=== PATIENT | male | born 1970 | race Caucasian/White ===

== ENCOUNTER 2017-05-14 10:17 | Inpatient (IN) | payer BC, SELFPAY ==
--- NOTE | 2017-05-14 10:33 | US_ITS ---
HISTORY: ITS.REASON: RUQ pain ORDERING PHYSICIAN: Shantanu Fleming MD PATIENT AGE: 46 years COMPARISON: None FINDINGS: PANCREAS: Pancreas not well demonstrated due to overlying bowel gas. CT may be of further value of the pancreas if clinically warranted. LIVER: No focal liver lesions demonstrated. Homogeneous echogenicity. No intrahepatic biliary ductal dilatation evident RIGHT KIDNEY: Unremarkable. Normal size and echogenicity. No hydronephrosis GALLBLADDER: No gallstones, gallbladder wall thickening, pericholecystic fluid, or biliary dilatation. IMPRESSION: Negative gallbladder/right upper quadrant ultrasound
--- NOTE | 2017-05-14 10:39 | XR_ITS ---
XR chest 2V HISTORY: ITS.REASON: tachycardia ORDERING PHYSICIAN: Shantanu Fleming MD PATIENT AGE: 46 years COMPARISON: None available FINDINGS: The cardiomediastinal silhouette and pulmonary vascularity are within normal limits. The lungs are clear without infiltrates, suspicious nodules, or pleural effusions. No acute bony abnormalities. IMPRESSION: Negative chest, no acute finding
[2017-05-14 11:05] VITALS: BP 184/95; PULSE 100; RESP 20; TEMP 36.9; O2SAT 100; BMI 34.8
[2017-05-14 11:10] LABS: Basophils % 0.3 % (0.1-2.0); Eosinophils % 0.2 % (0.1-12.0); Lymphocytes # 1.3 K/mm3 (0.7-4.5); Lymphocytes % 10.1 K/mm3 (10-50); Mean Corpuscular HGB Conc 31.5 g/dL (31.8-35.4); Mean Platelet Volume 7.6 fl (7.4-10.4); Monocytes # 0.7 K/mm3 (0.1-1.0); Monocytes % 5.2 % (1.7-9.3); Neutrophils # 10.9 K/mm3 (1.8-7.8); Neutrophils % 84.2 % (37.0-80.0); Platelet Count 356 K/mm3 (142-424); Red Blood Count 6.33 M/mm3 (4.60-6.20); Red Cell Distribution Width 13.3 % (11.5-17.5)
[2017-05-14 11:19] LABS: Hematocrit 58.7 % (42.0-52.0); Hemoglobin 18.4 g/dL (14.1-18.0)
[2017-05-14 11:25] LABS: Alanine Aminotransferase 29 U/L (12-78); Albumin Level 4.6 gm/dL (3.4-5.0); Albumin/Globulin Ratio 1.1 (1.1-1.8); Alkaline Phosphatase 145 U/L (46-116); Aspartate Amino Transferase 19 U/L (15-37); Bilirubin,Total 0.6 mg/dL (0.2-1.0); Blood Urea Nitrogen 22 mg/dL (7-18); Calcium 9.3 mg/dL (8.5-10.1); Chloride 86 mmol/L (98-107); Creatinine Clearance Estimated 96 mL/min (0-300); Creatinine,Serum 1.57 mg/dL (0.70-1.30); Estimated Glomerular Filt Rate 48 ml/min (>60); GFR (African American) 58 ML/MIN (>60); Globulin 4.3 gm/dl (1.3-3.2); Glucose 259 mg/dL (74-106); Potassium 5.5 mmoL/L (3.5-5.1); Sodium 119 mmol/L (136-145); Total Protein,Serum 8.9 gm/dL (6.4-8.2)
[2017-05-14 11:30] LABS: Anion Gap 31.5 mEq/L (5-15)
[2017-05-14 11:34] LABS: D-Dimer 306 (0-400)
[2017-05-14 11:36] LABS: CKMB Relative Index 2.8 U/L (0-4.0); Creatine Kinase 146 U/L (39-308); Creatine Kinase MB 4.1 mg/ml (0.0-3.6); Troponin I < 0.02 ng/ml (0.00-0.06)
[2017-05-14 11:37] VITALS: PULSE 100; RESP 20; O2SAT 100
[2017-05-14 11:38] LABS: Carbon Dioxide 7 mmol/L (21.0-32.0)
[2017-05-14 12:18] LABS: POC Glucose,Bedside 249 mg/dL
--- NOTE | 2017-05-14 14:20 | PC.NURSE ---
DR GAN NOTIFIED OF CO2 OF 7. STAT SERUM ACETONE AND ABG ORDERED ALONG WITH 2L LR IV BOLUS AND 4MG ZOFRAN Q6HRS. READ BACK AND VERIFIED.
[2017-05-14 14:24] LABS: ABG Base Excess -25.6 mmol/L (-2.4-2.3); ABG HCO3 4.2 mmhg (22.0-26.0); ABG Oxygen Saturation 98 % (90-100); ABG PO2 139.2 mmhg (80-100); ABG TCO2 4.6 mmhg (23-27)
[2017-05-14 14:26] LABS: Oxygen ROOM AIR %; Source Left Radial
[2017-05-14 14:27] LABS: ABG PCO2 14.2 mmhg (35.0-45.0); ABG PH 7.09 mmol/L (7.35-7.45)
[2017-05-14 15:02] LABS: Acetone, Serum (Rapid) Small (None Detect)
[2017-05-14 15:15] LABS: Microscopic, Urine URINE MICROSCOPIC (MICROSCOPIC)
[2017-05-14 16:31] VITALS: BP 148/76; PULSE 107; RESP 20; TEMP 36.7; O2SAT 100
--- NOTE | 2017-05-14 16:32 | PC.NURSE ---
PT STATED THAT HE MAY OR MAY NOT PUT KAMALA HOSE ON LATER. STATED WHEN HE WOKE UP THAT SHE WOULD ASK HIM ABOUT THE NON-SKID SOCKS. RN WAS IN ROOM AT THIS TIME.
[2017-05-14 16:35] LABS: POC Glucose,Bedside 250 mg/dL
[2017-05-14 16:49] LABS: Appearance,Urine CLEAR (Clear); Blood, Urine MODERATE (Negative); Color,Urine YELLOW (Yellow); Glucose,Urine (UA) 500 (Negative); Ketones,Urine >=80 (Negative); Leukocyte Esterase,Urine Negative (Negative); Nitrate,Urine Negative (Negative); PH,Urine 5.5 (5.0-8.5); Protein,Urine 100 (Negative); Specific Gravity, Urine >= 1.030 (1.005-1.030); Urobilinogen,Urine 0.2 EU/dl (0.2)
[2017-05-14 16:52] LABS: Bilirubin,Urine 1+ (Negative)
[2017-05-14 16:53] LABS: Bacteria,Urine 1+ /lpf; WBC,Urine Occasional #/hpf (0-3)
[2017-05-14 17:28] LABS: Anion Gap 27.6 mEq/L (5-15); Blood Urea Nitrogen 22 mg/dL (7-18); Chloride 92 mmol/L (98-107); Creatinine Clearance Estimated 107 mL/min (0-300); Creatinine,Serum 1.41 mg/dL (0.70-1.30); Estimated Glomerular Filt Rate 55 ml/min (>60); GFR (African American) 66 ML/MIN (>60); Glucose 247 mg/dL (74-106); Potassium 5.6 mmoL/L (3.5-5.1); Sodium 122 mmol/L (136-145)
[2017-05-14 17:30] LABS: Carbon Dioxide 8 mmol/L (21.0-32.0)
--- NOTE | 2017-05-14 18:49 | PC.NURSE ---
Pt A&O x3. Lungs are clear, bowel sounds normal. RUQ is tender to palpation. Pt reports being very nauseous but states he hasn't vomited since coming to the floor. Treated w/zofran and phenergan per mar with relief noted. is at bedside. Will continue to monitor.
--- NOTE | 2017-05-14 19:07 | PC.NURSE ---
Report to be given to Leola Munoz RN
[2017-05-14 20:13] VITALS: BP 160/84; PULSE 110; RESP 18; TEMP 37.2; O2SAT 100
[2017-05-14 21:23] VITALS: O2SAT 100
[2017-05-14 22:32] LABS: POC Glucose,Bedside 215 mg/dL
--- NOTE | 2017-05-14 23:58 | PC.NURSE ---
PATIENT C/O HEARTBURN AT THIS TIME. SPOKE WITH DR. GAN. TO FOR MAALOX 30 MG EVERY 2-3 HOURS PRN HEARTBURN AND TO START PEPCID NOW 20 MG IV BID. MD ALSO MADE AWARE OF PATIENT BEING TACHYPNEIC AND HAVING FRUITY BREATH. MD STATES THAT HE IS AWARE. REPORTED MANUAL RADIAL PULSE OF 100 PER MD REQUEST. LABS ORDERED FOR AM. NO OTHER PROBLEMS NOTED AT THIS TIME. VSS. WILL CONTINUE TO MONITOR.
[2017-05-15] VITALS (14 sets, daily range): BP systolic 121–177; BP diastolic 56–86; PULSE 92–113; RESP 18–27; TEMP 36.4–37.2; O2SAT 92–100
--- NOTE | 2017-05-15 04:33 | PC.NURSE ---
PATIENT HAS BEEN DROWSY AND HAS SLEPT MOST OF SHIFT. HE DID GET UP TO CHAIR BRIEFLY, BUT AFTER GOING TO BATHROOM RETURNED TO BED. PATIENT CONTINUES TO HAVE TACHYPNEA ON AND OFF THROUGHOUT SHIFT WITH NO DISTRESS OR SOA NOTED. MD WAS MADE AWARE OF THAT PREVIOUSLY. HE HAS HAD NO C/O PAIN OR NAUSEA, BUT DID C/O HEARTBURN. ORDER WAS OBTAINED FOR MAALOX AND PEPCID AND PATIENT RECEIVED THESE X1. PATIENT CURRENTLY IN BED SLEEPING. NO OTHER PROBLEMS NOTED AT THIS TIME. VSS. WILL CONTINUE TO MONITOR. SAFETY MEASURES IN PLACE, CALL LIGHT IN REACH.
[2017-05-15 06:27] LABS: POC Glucose,Bedside 164 mg/dL
[2017-05-15 06:40] LABS: Basophils % 0.2 % (0.1-2.0); Eosinophils # 0.1 K/mm3 (0.0-0.4); Eosinophils % 0.4 % (0.1-12.0); Hematocrit 55.4 % (42.0-52.0); Hemoglobin 17.2 g/dL (14.1-18.0); Lymphocytes # 1.4 K/mm3 (0.7-4.5); Lymphocytes % 9.4 K/mm3 (10-50); Mean Corpuscular Hemoglobin 28.6 pg (27.0-31.2); Mean Corpuscular Volume 92.3 fl (80-94); Mean Platelet Volume 7.3 fl (7.4-10.4); Monocytes # 1.3 K/mm3 (0.1-1.0); Monocytes % 8.7 % (1.7-9.3); Neutrophils # 12.2 K/mm3 (1.8-7.8); Neutrophils % 81.4 % (37.0-80.0); Platelet Count 306 K/mm3 (142-424); Red Cell Distribution Width 13.6 % (11.5-17.5); White Blood Count 14.9 K/mm3 (4.8-10.8)
[2017-05-15 06:53] LABS: Alkaline Phosphatase 121 U/L (46-116); Aspartate Amino Transferase 15 U/L (15-37); Bilirubin,Total 0.4 mg/dL (0.2-1.0); Chloride 96 mmol/L (98-107); Potassium 5.5 mmoL/L (3.5-5.1); Sodium 123 mmol/L (136-145); Total Protein,Serum 6.9 gm/dL (6.4-8.2)
[2017-05-15 07:11] LABS: Alanine Aminotransferase 29 U/L (12-78); Albumin Level 3.6 gm/dL (3.4-5.0); Albumin/Globulin Ratio 1.1 (1.1-1.8); Creatinine Clearance Estimated 125 mL/min (0-300); Creatinine,Serum 1.21 mg/dL (0.70-1.30); Estimated Glomerular Filt Rate 65 ml/min (>60); GFR (African American) 79 ML/MIN (>60); Globulin 3.3 gm/dl (1.3-3.2); Glucose 180 mg/dL (74-106)
--- NOTE | 2017-05-15 07:21 | P.CONPHA_ITS ---
[facility] Pharmacy VTE Monitoring - Patient Demographics Admission date: 05/14/17 Report Date: 05/15/17 Time: 07:20 Allergies/Adverse Reactions: No Known Drug Allergies [NKDA] Allergy (Unknown, Verified 05/15/17 00:13) Unknown allergy reaction Height: 1.8 m Weight: 113.398 kg - VTE Risk Labs: VTE Related Lab Results Hgb 17.2 g/dL (14.1-18.0) 05/15/17 06:30 Hct 55.4 % (42.0-52.0) H 05/15/17 06:30 Plt Count 306 K/mm3 (142-424) 05/15/17 06:30 BUN 22 mg/dL (7-18) H 05/14/17 17:10 Creatinine 1.41 mg/dL (0.70-1.30) H 05/14/17 17:10 Estimated Creat Clear 107 mL/min (0-300) 05/14/17 17:10 Was VTE Risk Assessment Performed: Yes VTE Score: 2 VTE Risk Level: Very Low Risk - Prophylaxis VTE Prophylaxis Ordered?: Yes Types of VTE Prophylaxis: TEDS Knee High Location of Applied Device: Bilateral Lower Extremeties - VTE Diagnosis Confirmed Treatment or plan recommended: Continue Current Treatment
--- NOTE | 2017-05-15 07:23 | HMH.HP ---
*Admission Date: 05/14/17 *Chief complaint: Dyspnea *History of present illness: 46-year-old white male, afflicted with type 2 diabetes and obesity who recently started aggressive low-calorie weight loss program through the [facility] which is essentially a severely calorie restricted diet based on some supplement shakes, whose had very good results and has had much lower glucose levels and has stopped his glimepiride recently. Came to my office on the day of admission with chief complaints of dyspnea for a couple of days. Low-grade fevers, feelings of weakness, dizziness and orthostasis. Was found to be tachycardic, had normal oximetry readings but had low blood pressure and was very dry. Admitted to hospital for further diagnostic testing. Found to have severe metabolic acidosis with CO2 of 7 and pH of 7.01. [facility] History I have reviewed the patient's past medical history: Yes Medical History: Reports:: Diabetes Mellitus Type 2, Hypertension Denies:: Cancer, MRSA Other Medical History: Reports: Sinus Problems Other Surgeries: Yes: Colonoscopy Amputation: No Fractures: No - *Social History Educational Level: Completed Graduate School Alcohol Intake: never Occupational Status: employed Housing: house Household Members: spouse, children - Psychiatric History Expresses thoughts of harming self/others: None Suicide Plan Description: No Plan *Family Hx:: Cancer, Diabetes, Hyperlipidemia, Hypertension Review of Systems - Review of Systems Review of systems:: unable to obtain, other, pertinent systems reviewed and negative unless documented below - Constitutional Reports fatigue - *Cardiovascular Reports shortness of breath, Reports shortness of breath with activity, Denies chest pain, Denies chest pain at rest - *Respiratory Reports shortness of breath - *Gastrointestinal Reports nausea Meds Home Medications Medication Instructions Recorded Confirmed Type Canagliflozin [Invokana] 300 mg PO DAILY 05/14/17 05/14/17 History Lisinopril [Lisinopril 5mg Tablet] 5 mg PO DAILY 05/14/17 05/14/17 History Metformin HCl [Metformin HCl] 1,000 mg PO DAILY 05/14/17 05/14/17 History Pravastatin Sodium [Pravachol 40mg 40 mg PO DAILY 05/14/17 05/14/17 History Tablet] Allergies Allergy/AdvReac Type Severity Reaction Status Date / Time No Known Drug Allergies Allergy Unknown Unknown Verified 05/15/17 00:13 [NKDA] allergy reaction Exam Vital signs and Labs for Last 24 Hours: Temp Pulse Resp BP Pulse Ox 98.7 F 113 H 20 147/74 100 05/15/17 04:00 05/15/17 04:00 05/15/17 04:00 05/15/17 04:00 05/15/17 04:00 Laboratory Results - last 24 hr 05/14/17 10:50: WBC 13.0 H, RBC 6.33 H, Hgb 18.4 H*, Hct 58.7 H, MCV 92.0, MCH 29.0, MCHC 31.5 L, RDW 13.3, Plt Count 356, MPV 7.6, Neut % (Auto) 84.2 H, Lymph % (Auto) 10.1, [place] % (Auto) 5.2, Eos % (Auto) 0.2, Baso % (Auto) 0.3, Neut # (Auto) 10.9 H, Lymph # (Auto) 1.3, [place] # (Auto) 0.7, Eos # (Auto) 0.0, Baso # (Auto) 0.0 05/14/17 10:50: Sodium 119 L, Potassium 5.5 H, Chloride 86 L, Carbon Dioxide 7 L*, Anion Gap 31.5 H, BUN 22 H, Creatinine 1.57 H, Estimated Creat Clear 96, Estimated GFR 48 L, Est GFR ( Amer) 58 L, Glucose 259 H, Calcium 9.3, Total Bilirubin 0.6, AST 19, ALT 29, Alkaline Phosphatase 145 H, Total Protein 8.9 H, Albumin 4.6, Globulin 4.3 H, Albumin/Globulin Ratio 1.1 05/14/17 10:50: D-Dimer 306 05/14/17 10:50: Total Creatine Kinase 146, CK-MB (CK-2) 4.1 H, CK-MB (CK-2) Rel Index 2.8, Troponin I < 0.02 05/14/17 11:53: POC Glucose 249 05/14/17 14:15: Specimen Source Left radial, O2 % Room air, ABG pH 7.09 L*, ABG pCO2 14.2 L, ABG pO2 139.2 H, ABG HCO3 4.2 L, ABG Total CO2 4.6 L, ABG O2 Saturation 98, ABG Base Excess -25.6 L 05/14/17 14:24: Acetone Level Small 05/14/17 15:09: Urine Color Yellow, Urine Appearance Clear, Urine pH 5.5, Ur Specific [place] >= 1.030, Urine Protein 100, Urine Glucose (UA) 500, Urine Ketones >=80,
--- NOTE | 2017-05-15 07:26 | P.HP_ITS ---
*Admission Date: 05/14/17 *Chief complaint: Dyspnea *History of present illness: 46-year-old white male, afflicted with type 2 diabetes and obesity who recently started aggressive low-calorie weight loss program through the [facility] which is essentially a severely calorie restricted diet based on some supplement shakes, whose had very good results and has had much lower glucose levels and has stopped his glimepiride recently. Came to my office on the day of admission with chief complaints of dyspnea for a couple of days. Low-grade fevers, feelings of weakness, dizziness and orthostasis. Was found to be tachycardic, had normal oximetry readings but had low blood pressure and was very dry. Admitted to hospital for further diagnostic testing. Found to have severe metabolic acidosis with CO2 of 7 and pH of 7.01. [facility] History I have reviewed the patient's past medical history: Yes Medical History: Reports:: Diabetes Mellitus Type 2, Hypertension Denies:: Cancer, MRSA Other Medical History: Reports: Sinus Problems Other Surgeries: Yes: Colonoscopy Amputation: No Fractures: No - *Social History Educational Level: Completed Graduate School Alcohol Intake: never Occupational Status: employed Housing: house Household Members: spouse, children - Psychiatric History Expresses thoughts of harming self/others: None Suicide Plan Description: No Plan *Family Hx:: Cancer, Diabetes, Hyperlipidemia, Hypertension Review of Systems - Review of Systems Review of systems:: unable to obtain, other, pertinent systems reviewed and negative unless documented below - Constitutional Reports fatigue - *Cardiovascular Reports shortness of breath, Reports shortness of breath with activity, Denies chest pain, Denies chest pain at rest - *Respiratory Reports shortness of breath - *Gastrointestinal Reports nausea Meds Home Medications Medication Instructions Recorded Confirmed Type Canagliflozin [Invokana] 300 mg PO DAILY 05/14/17 05/14/17 History Lisinopril [Lisinopril 5mg Tablet] 5 mg PO DAILY 05/14/17 05/14/17 History Metformin HCl [Metformin HCl] 1,000 mg PO DAILY 05/14/17 05/14/17 History Pravastatin Sodium [Pravachol 40mg 40 mg PO DAILY 05/14/17 05/14/17 History Tablet] Allergies Allergy/AdvReac Type Severity Reaction Status Date / Time No Known Drug Allergies Allergy Unknown Unknown Verified 05/15/17 00:13 [NKDA] allergy reaction Exam Vital signs and Labs for Last 24 Hours: Temp Pulse Resp BP Pulse Ox 98.7 F 113 H 20 147/74 100 05/15/17 04:00 05/15/17 04:00 05/15/17 04:00 05/15/17 04:00 05/15/17 04:00 Laboratory Results - last 24 hr 05/14/17 10:50: WBC 13.0 H, RBC 6.33 H, Hgb 18.4 H*, Hct 58.7 H, MCV 92.0, MCH 29.0, MCHC 31.5 L, RDW 13.3, Plt Count 356, MPV 7.6, Neut % (Auto) 84.2 H, Lymph % (Auto) 10.1, [place] % (Auto) 5.2, Eos % (Auto) 0.2, Baso % (Auto) 0.3, Neut # (Auto) 10.9 H, Lymph # (Auto) 1.3, [place] # (Auto) 0.7, Eos # (Auto) 0.0, Baso # (Auto) 0.0 05/14/17 10:50: Sodium 119 L, Potassium 5.5 H, Chloride 86 L, Carbon Dioxide 7 L *, Anion Gap 31.5 H, BUN 22 H, Creatinine 1.57 H, Estimated Creat Clear 96, Estimated GFR 48 L, Est GFR ( Amer) 58 L, Glucose 259 H, Calcium 9.3, Total Bilirubin 0.6, AST 19, ALT 29, Alkaline Phosphatase 145 H, Total Protein 8.9 H, Albumin 4.6, Globulin 4.3 H, Albumin/Globulin Ratio 1.1 05/14/17 10:50: D-Dimer 306 05/14/17 10:50: Tota
[2017-05-15 07:28] LABS: Carbon Dioxide 7 mmol/L (21.0-32.0)
[2017-05-15 07:33] LABS: Anion Gap 25.5 mEq/L (5-15); Blood Urea Nitrogen 19 mg/dL (7-18)
[2017-05-15 07:35] LABS: Acetone, Serum (Rapid) Small (None Detect); Calcium 7.7 mg/dL (8.5-10.1)
--- NOTE | 2017-05-15 07:51 | HMH.ACPN2 ---
Internal Medicine - PN: Subj *Date: 05/15/17 *Time: 07:51 Interval history: Patient continues to feel tired and short of air, continues to be tachycardic and slightly tachypneic. No chest pain overnight. Exam Vital signs and Labs for Last 24 Hours: Temp Pulse Resp BP Pulse Ox 98.7 F 113 H 20 147/74 100 05/15/17 04:00 05/15/17 04:00 05/15/17 04:00 05/15/17 04:00 05/15/17 04:00 Laboratory Results - last 24 hr 05/14/17 10:50: WBC 13.0 H, RBC 6.33 H, Hgb 18.4 H*, Hct 58.7 H, MCV 92.0, MCH 29.0, MCHC 31.5 L, RDW 13.3, Plt Count 356, MPV 7.6, Neut % (Auto) 84.2 H, Lymph % (Auto) 10.1, [place] % (Auto) 5.2, Eos % (Auto) 0.2, Baso % (Auto) 0.3, Neut # (Auto) 10.9 H, Lymph # (Auto) 1.3, [place] # (Auto) 0.7, Eos # (Auto) 0.0, Baso # (Auto) 0.0 05/14/17 10:50: Sodium 119 L, Potassium 5.5 H, Chloride 86 L, Carbon Dioxide 7 L*, Anion Gap 31.5 H, BUN 22 H, Creatinine 1.57 H, Estimated Creat Clear 96, Estimated GFR 48 L, Est GFR ( Amer) 58 L, Glucose 259 H, Calcium 9.3, Total Bilirubin 0.6, AST 19, ALT 29, Alkaline Phosphatase 145 H, Total Protein 8.9 H, Albumin 4.6, Globulin 4.3 H, Albumin/Globulin Ratio 1.1 05/14/17 10:50: D-Dimer 306 05/14/17 10:50: Total Creatine Kinase 146, CK-MB (CK-2) 4.1 H, CK-MB (CK-2) Rel Index 2.8, Troponin I < 0.02 05/14/17 11:53: POC Glucose 249 05/14/17 14:15: Specimen Source Left radial, O2 % Room air, ABG pH 7.09 L*, ABG pCO2 14.2 L, ABG pO2 139.2 H, ABG HCO3 4.2 L, ABG Total CO2 4.6 L, ABG O2 Saturation 98, ABG Base Excess -25.6 L 05/14/17 14:24: Acetone Level Small 05/14/17 15:09: Urine Color Yellow, Urine Appearance Clear, Urine pH 5.5, Ur Specific [place] >= 1.030, Urine Protein 100, Urine Glucose (UA) 500, Urine Ketones >=80, Urine Blood Moderate, Urine Nitrate Negative, Urine Bilirubin 1+ A, Urine Urobilinogen 0.2, Ur Leukocyte Esterase Negative, Urine RBC 3-5, Urine WBC Occasional, Ur Squamous Epith Cells 5-10, Urine Bacteria 1+, Hyaline Casts 10-20 05/14/17 16:08: POC Glucose 250 05/14/17 17:10: Sodium 122 L, Potassium 5.6 H, Chloride 92 L, Carbon Dioxide 8 L* D, Anion Gap 27.6 H, BUN 22 H, Creatinine 1.41 H, Estimated Creat Clear 107, Estimated GFR 55 L, Est GFR ( Amer) 66, Glucose 247 H 05/14/17 21:48: POC Glucose 215 05/15/17 06:07: POC Glucose 164 05/15/17 06:30: WBC 14.9 H, RBC 6.00, Hgb 17.2, Hct 55.4 H, MCV 92.3, MCH 28.6, MCHC 31.0 L, RDW 13.6, Plt Count 306, MPV 7.3 L, Neut % (Auto) 81.4 H, Lymph % (Auto) 9.4 L, [place] % (Auto) 8.7, Eos % (Auto) 0.4, Baso % (Auto) 0.2, Neut # (Auto) 12.2 H, Lymph # (Auto) 1.4, [place] # (Auto) 1.3 H, Eos # (Auto) 0.1, Baso # (Auto) 0.0 05/15/17 06:30: Sodium 123 L, Potassium 5.5 H, Chloride 96 L, Carbon Dioxide 7 L* D, Anion Gap 25.5 H, BUN 19 H, Creatinine 1.21, Estimated Creat Clear 125, Estimated GFR 65, Est GFR ( Amer) 79, Glucose 180 H D, Calcium 7.7 L D, Total Bilirubin 0.4, AST 15, ALT 29, Alkaline Phosphatase 121 H, Total Protein 6.9, Albumin 3.6 D, Globulin 3.3 H, Albumin/Globulin Ratio 1.1 05/15/17 06:30: Acetone Level Small I & O for Last 24 hours: Intake & Output 05/12/17 05/13/17 05/14/17 05/15/17 11:59 11:59 11:59 11:59 Intake Total 7031 / 7031 Balance 31 / 7031 Weight 250 lb 250 lb Narrative: Patient remains alert. Tachypneic. Cardiopulmonary assessment otherwise unchanged. No rash. No vomiting or diarrhea. Assessment and Plan (1) Metabolic acidosis Current visit: Yes Status: Acute Category: Medical Code(s): E87.2 - Acidosis (2) Dehydration Current visit: Yes Status: Acute Category: Medical Code(s): E86.0 - Dehydration (3) Tachycardia Current visit: Yes Status: Acute Category: Medical Code(s): R00.0 - Tachycardia, unspecified (4) Diabetes mellitus type 2 in obese Current visit: Yes Status: Chronic Category: Medical Code(s): E11.69 - Type 2 diabetes mellitus with other specified complication; E66.9 - Obesity, unspecified - Assessment and plan all Dx Assessment and
[2017-05-15 15:58] LABS: ABG Base Excess -26.8 mmol/L (-2.4-2.3); ABG HCO3 2.9 mmhg (22.0-26.0); ABG Oxygen Saturation 99 % (90-100); ABG PO2 162.6 mmhg (80-100); ABG TCO2 3.2 mmhg (23-27)
[2017-05-15 16:00] LABS: Allen's Test ACCEPTABLE; Oxygen 2LPM %; Source L RADIAL
[2017-05-15 16:01] LABS: ABG PCO2 9.6 mmhg (35.0-45.0)
[2017-05-15 16:06] LABS: Acetone, Serum (Rapid) Small (None Detect)
[2017-05-15 16:22] LABS: Anion Gap 27.9 mEq/L (5-15); Blood Urea Nitrogen 16 mg/dL (7-18); Chloride 97 mmol/L (98-107); Creatinine Clearance Estimated 123 mL/min (0-300); Creatinine,Serum 1.23 mg/dL (0.70-1.30); Estimated Glomerular Filt Rate 64 ml/min (>60); GFR (African American) 77 ML/MIN (>60); Glucose 165 mg/dL (74-106); Potassium 4.9 mmoL/L (3.5-5.1); Sodium 127 mmol/L (136-145)
[2017-05-15 16:26] LABS: Carbon Dioxide 7 mmol/L (21.0-32.0)
[2017-05-15 17:26] LABS: Lactic Acid 1.3 mmol/L (0.4-2.0)
[2017-05-15 18:18] LABS: Salicylate 3.4 mg/dL (2.8-20.0)
[2017-05-15 18:19] LABS: Acetaminophen 0 ug/mL (10-30)
--- NOTE | 2017-05-15 19:48 | CT_ITS ---
CT abdomen pelvis w con CLINICAL INDICATION: Elevated white blood cell count with metabolic acidosis ITS.REASON: METABOLIC ACIDOSIS ORDERING PHYSICIAN: Shantanu Fleming MD PATIENT AGE: 46 years COMPARISON: None TECHNIQUE: Axial images obtained with sagittal and coronal reformats. PROCEDURE: Oral Contrast: Gastroview IV Contrast: 75 mL's Isovue-370 performed in conjunction with the chest CT. FINDINGS: Lower thorax: No acute finding ABDOMEN: Liver: No masses or biliary dilatation. Gallbladder: Nondistended. No radio opaque stones. Pancreas: No masses or peripancreatic fluid collections. Spleen: Unremarkable. Adrenals: Unremarkable Kidneys/ureters: No masses. No renal calculi. No hydronephrosis. No perinephric fluid collections. No ureteral dilatation or obvious ureteral calculi. Stomach bowel: There is thickening of the distal esophagus there is also mild thickening of the duodenal bulb, as well as descending and transverse duodenum with some minimal stranding of the fat adjacent to the duodenum consistent with esophagitis and duodenitis.. Appendix: No evidence of appendicitis. PELVIS: Reproductive: Unremarkable Bladder: Nondistended. No obvious stones or masses. ABDOMEN & PELVIS: Peritoneum: No abnormal fluid collections. No obvious inflammatory changes. No free air. Abdominal wall: Small left inguinal hernia containing fat Lymph nodes: No enlarged lymph nodes apparent. Vasculature: No evidence of abdominal aortic aneurysm. No retroperitoneal hemorrhage evident. Bones: Lumbar spondylosis with endplate osteophytes with bilateral foraminal narrowing at L5-S1 which may be better evaluated with MRI if clinically desired IMPRESSION: 1. Thickening of the esophagus and duodenum consistent with esophagitis and duodenitis. 2. Small left inguinal hernia containing fat
--- NOTE | 2017-05-15 19:48 | CT_ITS ---
CT chest w con HISTORY: Elevated white blood cell count with metabolic acidosis, tachycardia ITS.REASON: METABOLIC ACIDOSIS ORDERING PHYSICIAN: Shantanu Fleming MD PATIENT AGE: 46 years TECHNIQUE: Axial images obtained following the administration of 75 mL of Isovue 370 . Sagittal, and coronal reformatted images are also generated and reviewed. COMPARISON: None FINDINGS: VASCULATURE:No acute finding. No thoracic aortic aneurysm or dissection evident LUNGS:Unremarkable. No mass or consolidation. PLEURAL SPACES:No significant effusion. No evidence of pneumothorax. HEART:Unremarkable. Normal heart size. No significant pericardial effusion. MEDIASTINAL AND HILAR STRUCTURES:No mediastinal or hilar mass evident. No dominant adenopathy. Is mild thickening of the distal esophagus nonspecific and may be seen with esophagitis. BONY STRUCTURES:No acute bony abnormalities apparent LYMPH NODES:No enlarged lymph nodes evident UPPER ABDOMEN:Please see abdomen CT report IMPRESSION: 1. Mild thickening of distal esophagus which may be seen with esophagitis. 2. Otherwise negative CT chest with contrast.
[2017-05-15 20:30] LABS: POC Glucose,Bedside 171 mg/dL
[2017-05-15 20:30] LABS: POC Glucose,Bedside 141 mg/dL
[2017-05-15 20:30] LABS: POC Glucose,Bedside 131 mg/dL
[2017-05-15 20:30] LABS: POC Glucose,Bedside 197 mg/dL
[2017-05-15 20:30] LABS: POC Glucose,Bedside 146 mg/dL
[2017-05-15 20:30] LABS: POC Glucose,Bedside 147 mg/dL
--- NOTE | 2017-05-15 20:53 | PC.NURSE ---
PT MOVED TO ICU (FOR STAFFING PURPOSES) VS WNL. INSULIN GTT INFUSING. PT DENIES ANY PAIN OR SOA AT THIS TIME. CONTINUE TO MONITOR VS AND LABS.
[2017-05-15 21:07] LABS: POC Glucose,Bedside 127 mg/dL
[2017-05-15 22:30] LABS: Acetone, Serum (Rapid) Small (None Detect)
[2017-05-15 22:38] LABS: Anion Gap 23.5 mEq/L (5-15); Blood Urea Nitrogen 15 mg/dL (7-18); Chloride 102 mmol/L (98-107); Creatinine Clearance Estimated 159 mL/min (0-300); Creatinine,Serum 0.95 mg/dL (0.70-1.30); Estimated Glomerular Filt Rate 86 ml/min (>60); GFR (African American) 104 ML/MIN (>60); Glucose 120 mg/dL (74-106); Potassium 4.5 mmoL/L (3.5-5.1); Sodium 129 mmol/L (136-145)
[2017-05-15 22:41] LABS: Carbon Dioxide 8 mmol/L (21.0-32.0)
[2017-05-16] VITALS (11 sets, daily range): BP systolic 131–160; BP diastolic 64–81; PULSE 90–105; RESP 18–25; TEMP 36.7–37.3; O2SAT 2–100; BMI 36.3
[2017-05-16 00:19] LABS: POC Glucose,Bedside 94 mg/dL
[2017-05-16 00:19] LABS: POC Glucose,Bedside 116 mg/dL
[2017-05-16 01:30] LABS: POC Glucose,Bedside 132 mg/dL
[2017-05-16 03:41] LABS: POC Glucose,Bedside 124 mg/dL
[2017-05-16 04:31] LABS: POC Glucose,Bedside 130 mg/dL
--- NOTE | 2017-05-16 05:01 | PC.NURSE ---
PT RESTING IN BED. STATES THAT HE FEELS BETTER THIS AM. FSBS HAS BEEN REMAINING BETWEEN 124 AND 130 FOR THE PAST FEW HOURS. PT FSBS DECREASED TO 94 @ 2241. MD ALCOHOL STILL OPERATOR WAS CALLED FOR CLARIFICATION OF ORDER. PT WAS STARTED ON D5 NS @ 150 ML/HR PER MD ORDER AND PROTOCOL AFTER PT WAS ADMINISTERED 2L BOLUS OF 0.9% NS. PT INSULIN GTT WAS PLACED @ 1 UNIT/ HR PER MD ALCOHOL STILL OPERATOR. [place] [facility] [place] CONTINUES TO BE WEAK HOWEVER. V/S HAVE REMAINED STABLE. NO OTHER COCNERNS AT THIS TIME. WILL CONTINUE TO MONITOR.
[2017-05-16 05:56] LABS: POC Glucose,Bedside 142 mg/dL
[2017-05-16 06:53] LABS: Acetone, Serum (Rapid) None Detected (None Detect)
[2017-05-16 06:56] LABS: Blood Urea Nitrogen 12 mg/dL (7-18); Carbon Dioxide 11 mmol/L (21.0-32.0); Chloride 104 mmol/L (98-107); Creatinine Clearance Estimated 148 mL/min (0-300); Creatinine,Serum 1.02 mg/dL (0.70-1.30); Estimated Glomerular Filt Rate 79 ml/min (>60); GFR (African American) 96 ML/MIN (>60); Glucose 158 mg/dL (74-106); Sodium 133 mmol/L (136-145)
[2017-05-16 07:15] LABS: POC Glucose,Bedside 136 mg/dL
--- NOTE | 2017-05-16 07:53 | PC.NURSE ---
nurse to assume primary care of pt.
--- NOTE | 2017-05-16 08:19 | HMH.ACPN2 ---
Internal Medicine - PN: Subj *Date: 05/16/17 *Time: 08:19 Interval history: Overall patient feels somewhat better. Breathing is better, feels hungry. No vomiting. Excellent urine output. Exam Vital signs and Labs for Last 24 Hours: Temp Pulse Resp BP Pulse Ox 98.1 F 94 H 20 148/76 100 05/16/17 04:00 05/16/17 06:25 05/16/17 06:25 05/16/17 06:25 05/16/17 04:00 Laboratory Results - last 24 hr 05/15/17 09:32: POC Glucose 197 05/15/17 10:32: POC Glucose 131 05/15/17 11:39: POC Glucose 146 05/15/17 12:41: POC Glucose 141 05/15/17 13:56: POC Glucose 147 05/15/17 15:12: POC Glucose 136 05/15/17 15:40: Sodium 127 L, Potassium 4.9, Chloride 97 L, Carbon Dioxide 7 L*, Anion Gap 27.9 H, BUN 16, Creatinine 1.23, Estimated Creat Clear 123, Estimated GFR 64, Est GFR ( Amer) 77, Glucose 165 H, Acetone Level Small 05/15/17 15:56: Specimen Source L radial, O2 % 2lpm, ABG pH 7.10 L*, ABG pCO2 9.6 L, ABG pO2 162.6 H, ABG HCO3 2.9 L, ABG Total CO2 3.2 L, ABG O2 Saturation 99, ABG Base Excess -26.8 L, [place] Test Acceptable 05/15/17 17:00: Lactic Acid 1.3 05/15/17 17:52: POC Glucose 171 05/15/17 20:59: POC Glucose 127 05/15/17 22:00: Sodium 129 L, Potassium 4.5, Chloride 102, Carbon Dioxide 8 L* D, Anion Gap 23.5 H, BUN 15, Creatinine 0.95 D, Estimated Creat Clear 159, Estimated GFR 86, Est GFR ( Amer) 104 D, Glucose 120 H D, Acetone Level Small 05/15/17 22:41: POC Glucose 94 05/15/17 : Salicylates 3.4, Acetaminophen 0 L 05/16/17 00:09: POC Glucose 116 05/16/17 01:10: POC Glucose 132 05/16/17 03:10: POC Glucose 124 05/16/17 04:24: POC Glucose 130 05/16/17 05:38: POC Glucose 142 05/16/17 06:20: Sodium 133 L, Potassium 4.0, Chloride 104, Carbon Dioxide 11 L D, Anion Gap 22.0 H, BUN 12, Creatinine 1.02, Estimated Creat Clear 148, Estimated GFR 79, Est GFR ( Amer) 96, Glucose 158 H D, Acetone Level None detected I & O for Last 24 hours: Intake & Output 05/13/17 05/14/17 05/15/17 05/16/17 11:59 11:59 11:59 11:59 Intake Total 7271 / 7271 67091 / 18689 Output Total 5800 / 5800 Balance 7271 / 7271 4436 / 4436 Weight 250 lb 250 lb 260 lb Microbiology Reports for the Last 24 Hours: Microbiology 05/14/17 10:50 Blood Blood Culture - Preliminary NO GROWTH AFTER 24 HOURS 05/14/17 10:50 Blood Blood Culture - Preliminary NO GROWTH AFTER 24 HOURS Narrative: Patient is alert. Heart rate 100 and regular. Abdomen soft, lungs clear. Urine output excellent. Assessment and Plan (1) Metabolic acidosis Current visit: Yes Status: Acute Category: Medical Code(s): E87.2 - Acidosis (2) Dehydration Current visit: Yes Status: Acute Category: Medical Code(s): E86.0 - Dehydration (3) Tachycardia Current visit: Yes Status: Acute Category: Medical Code(s): R00.0 - Tachycardia, unspecified (4) Diabetes mellitus type 2 in obese Current visit: Yes Status: Chronic Category: Medical Code(s): E11.69 - Type 2 diabetes mellitus with other specified complication; E66.9 - Obesity, unspecified (5) Esophagitis Current visit: Yes Status: Acute Category: Medical Code(s): K20.9 - Esophagitis, unspecified - Assessment and plan all Dx Assessment and Plan for all problems:: Acetaminophen and salicylate levels are negative. Acetone levels have cleared. CO2 levels have improved to double digits. I believe the ketoacidosis here was caused by Invokana in combination with his high-protein low fluid diet. It is improving. Stop insulin drip given the absence of ketones. Fluid boluses today. CT scan shows esophagitis. Consistent with a severe heartburn. Change to twice daily proton pump inhibitor.
--- NOTE | 2017-05-16 09:01 | PC.NURSE ---
Dr Ritchie verbally told nurse this am to stop insulin drip and to transfer out of stepdown. pt order was not entered. clarified with dr ritchie. ok to transfer out of stepdown, but pt to keep heart monitor in place.
[2017-05-16 12:48] LABS: POC Glucose,Bedside 159 mg/dL
--- NOTE | 2017-05-16 15:57 | PC.NURSE ---
verified fluid orders with dr ritchie. pt to be at ns at 150 at this time. orders sent to pharmacy
--- NOTE | 2017-05-16 16:34 | PC.NURSE ---
patient has rested well on unit, has not wanted to ambulate much, due to lack of space. pt has been up to bsc numerous times this shift. is present at bedside. report called to samuel wylie rn at 1600. lung sounds are clear throuhgout, bowel sounds are hypoactive in all quads. nad noted receiving nurse will monitor.
[2017-05-16 18:05] LABS: POC Glucose,Bedside 154 mg/dL
[2017-05-16 18:24] LABS: Anion Gap 22.5 mEq/L (5-15); Blood Urea Nitrogen 9 mg/dL (7-18); Carbon Dioxide 12 mmol/L (21.0-32.0); Chloride 104 mmol/L (98-107); Creatinine Clearance Estimated 153 mL/min (0-300); Creatinine,Serum 1.03 mg/dL (0.70-1.30); Estimated Glomerular Filt Rate 78 ml/min (>60); GFR (African American) 95 ML/MIN (>60); Glucose 169 mg/dL (74-106); Potassium 3.5 mmoL/L (3.5-5.1); Sodium 135 mmol/L (136-145)
[2017-05-16 19:05] LABS: Acetone, Serum (Rapid) Small (None Detect)
--- NOTE | 2017-05-16 19:15 | PC.NURSE ---
PT FULL CODE; REPORT RECEIVED FROM NUR. PÉREZ
--- NOTE | 2017-05-16 20:30 | PC.NURSE ---
PT WAS WEARING KAMALA HOSE, STATES TOOK OFF FOR SHOWER AND NOW LEAVING THEM OFF FOR AWHILE.
[2017-05-16 20:54] LABS: POC Glucose,Bedside 161 mg/dL
[2017-05-17] VITALS: BP 126/61; PULSE 96; RESP 18; TEMP 36.5; O2SAT 98
[2017-05-17 04:00] VITALS: BP 141/57; PULSE 99; RESP 22; TEMP 36.7; O2SAT 96
--- NOTE | 2017-05-17 04:53 | PC.NURSE ---
PT SLEPT MOST OF SHIFT, AT BEDSIDE. NO C/O CHEST PAIN, SOA OR ANY OTHER DISCOMFORT. IV #1 INFUSING NS@150/HR AND SITE #2 SL: BOTH PATENT, W/O REDNESS OR EDEMA. PT'S VSS. HS FINGER STICK WAS 161 PT RECEIVED 2 UNITS SS. PT SCHEDULED FOR ACETONE SERUM AND BMP THIS AM. PT STABLE. WILL CONTINUE TO MONITOR. REPORT TO BE GIVEN TO ONCOMING NURSE.
[2017-05-17 06:32] LABS: POC Glucose,Bedside 123 mg/dL
--- NOTE | 2017-05-17 07:15 | PC.NURSE ---
REPORT GIVEN TO Abby PRIEST W/C
[2017-05-17 08:00] VITALS: O2SAT 98
[2017-05-17 08:09] LABS: Anion Gap 24.3 mEq/L (5-15); Blood Urea Nitrogen 10 mg/dL (7-18); Chloride 105 mmol/L (98-107); Creatinine Clearance Estimated 157 mL/min (0-300); Creatinine,Serum 0.98 mg/dL (0.70-1.30); Estimated Glomerular Filt Rate 83 ml/min (>60); GFR (African American) 101 ML/MIN (>60); Glucose 131 mg/dL (74-106); Potassium 3.3 mmoL/L (3.5-5.1); Sodium 136 mmol/L (136-145)
[2017-05-17 08:10] VITALS: BP 151/78; PULSE 86; RESP 20; TEMP 36.2; O2SAT 100
[2017-05-17 08:12] LABS: Carbon Dioxide 10 mmol/L (21.0-32.0)
--- NOTE | 2017-05-17 08:26 | HMH.DCSUM ---
General - General Admission date: 05/14/17 Discharge date: 05/17/17 [facility] HPI: 46-year-old white male, afflicted with type 2 diabetes and obesity who recently started aggressive low-calorie weight loss program through the [facility] which is essentially a severely calorie restricted diet based on some supplement shakes, whose had very good results and has had much lower glucose levels and has stopped his glimepiride recently. Came to my office on the day of admission with chief complaints of dyspnea for a couple of days. Low-grade fevers, feelings of weakness, dizziness and orthostasis. Was found to be tachycardic, had normal oximetry readings but had low blood pressure and was very dry. Admitted to hospital for further diagnostic testing. Found to have severe metabolic acidosis with CO2 of 7 and pH of 7.01. Objective Vital signs: Temp Pulse Resp BP Pulse Ox 97.1 F L 86 20 151/78 100 05/17/17 08:10 05/17/17 08:10 05/17/17 08:10 05/17/17 08:10 05/17/17 08:10 Narrative: Exam this morning, the morning of discharge reveals regular heart rate, clear lungs, good hydration status, normal vital signs with pulse rate 82. No rash, alert, oriented ?3 with no tachypnea. Hospital Course Hospital Course: Patient was admitted to hospital as indicated in HPI. Workup for his metabolic acidosis was undertaken. He was found to have mild acetone levels and insulin drip was started. After elimination of sources like salicylate/acetaminophen toxicity and occult malignancy, it was determined that his ketoacidosis was from a combination of his medications-namely his SGLT-2 inhibitor, his recent high-protein low carbohydrate low fluid diet. He was infused with significant amounts of volume replacement, and improved his situation. Insulin drip was able to be discontinued. The patient remained acidotic but improved, hyponatremia improved, and most importantly overnight last night his vital signs returned to normal. This morning he remains slightly acidotic from a CO2 perspective but vital signs have improved, he is eating and drinking well and feels much better. He will be discharged home. Medications will be held except for proton pump inhibitor because of his esophagitis proven on CT scan and I will see him in the office in 48 hours with labs at that time. Results Labs on day of discharge: Labs from last 24 hours 05/17/17 05/17/17 05/16/17 07:00 06:22 20:35 Sodium 136 Potassium 3.3 L Chloride 105 Carbon Dioxide 10 L D Anion Gap 24.3 H BUN 10 Creatinine 0.98 Estimated Creat Clear 157 Estimated GFR 83 Est GFR ( Amer) 101 Glucose 131 H D POC Glucose 123 161 Acetone Level 05/16/17 05/16/17 05/16/17 18:00 17:28 12:40 Sodium 135 L Potassium 3.5 Chloride 104 Carbon Dioxide 12 L Anion Gap 22.5 H BUN 9 Creatinine 1.03 Estimated Creat Clear 153 Estimated GFR 78 Est GFR ( Amer) 95 Glucose 169 H POC Glucose 154 159 Acetone Level Small Preliminary micro results at discharge 05/14/17 10:50 Blood Culture - Preliminary Blood NO GROWTH AFTER 48 HOURS 05/14/17 10:50 Blood Culture - Preliminary Blood NO GROWTH AFTER 48 HOURS DS: Diagnosis - Discharge Diagnosis (1) Metabolic acidosis Status: Acute (2) Dehydration Status: Acute (3) Tachycardia Status: Acute (4) Diabetes mellitus type 2 in obese Status: Chronic (5) Esophagitis Status: Acute Meds Home Medications Medication Instructions Recorded Confirmed Type Canagliflozin [Invokana] 300 mg PO DAILY 05/14/17 05/14/17 History Lisinopril [Lisinopril 5mg Tablet] 5 mg PO DAILY 05/14/17 05/14/17 History Metformin HCl [Metformin HCl] 1,000 mg PO DAILY 05/14/17 05/14/17 History Pravastatin Sodium [Pravachol 40mg 40 mg PO DAILY 05/14/17 05/14/17 History Tablet] Allergies Allergy/Ad
--- NOTE | 2017-05-17 08:30 | P.DS_ITS ---
General - General Admission date: 05/14/17 Discharge date: 05/17/17 [facility] HPI: 46-year-old white male, afflicted with type 2 diabetes and obesity who recently started aggressive low-calorie weight loss program through the [facility] which is essentially a severely calorie restricted diet based on some supplement shakes, whose had very good results and has had much lower glucose levels and has stopped his glimepiride recently. Came to my office on the day of admission with chief complaints of dyspnea for a couple of days. Low-grade fevers, feelings of weakness, dizziness and orthostasis. Was found to be tachycardic, had normal oximetry readings but had low blood pressure and was very dry. Admitted to hospital for further diagnostic testing. Found to have severe metabolic acidosis with CO2 of 7 and pH of 7.01. Objective Vital signs: Temp Pulse Resp BP Pulse Ox 97.1 F L 86 20 151/78 100 05/17/17 08:10 05/17/17 08:10 05/17/17 08:10 05/17/17 08:10 05/17/17 08:10 Narrative: Exam this morning, the morning of discharge reveals regular heart rate, clear lungs, good hydration status, normal vital signs with pulse rate 82. No rash, alert, oriented ?3 with no tachypnea. Hospital Course Hospital Course: Patient was admitted to hospital as indicated in HPI. Workup for his metabolic acidosis was undertaken. He was found to have mild acetone levels and insulin drip was started. After elimination of sources like salicylate/acetaminophen toxicity and occult malignancy, it was determined that his ketoacidosis was from a combination of his medications-namely his SGLT-2 inhibitor, his recent high-protein low carbohydrate low fluid diet. He was infused with significant amounts of volume replacement, and improved his situation. Insulin drip was able to be discontinued. The patient remained acidotic but improved, hyponatremia improved, and most importantly overnight last night his vital signs returned to normal. This morning he remains slightly acidotic from a CO2 perspective but vital signs have improved, he is eating and drinking well and feels much better. He will be discharged home. Medications will be held except for proton pump inhibitor because of his esophagitis proven on CT scan and I will see him in the office in 48 hours with labs at that time. Results Labs on day of discharge: Labs from last 24 hours 05/17/17 05/17/17 05/16/17 07:00 06:22 20:35 Sodium 136 Potassium 3.3 L Chloride 105 Carbon Dioxide 10 L D Anion Gap 24.3 H BUN 10 Creatinine 0.98 Estimated Creat Clear 157 Estimated GFR 83 Est GFR ( Amer) 101 Glucose 131 H D POC Glucose 123 161 Acetone Level 05/16/17 05/16/17 05/16/17 18:00 17:28 12:40 Sodium 135 L Potassium 3.5 Chloride 104 Carbon Dioxide 12 L Anion Gap 22.5 H BUN 9 Creatinine 1.03 Estimated Creat Clear 153 Estimated GFR 78 Est GFR ( Amer) 95 Glucose 169 H POC Glucose 154 159 Acetone Level Small Preliminary micro results at discharge 05/14/17 10:50 Blood Culture - Preliminary Blood NO GROWTH AFTER 48 HOURS 05/14/17 10:50 Blood Culture - Preliminary
[2017-05-17 09:19] LABS: Acetone, Serum (Rapid) Small (None Detect)
== END 2017-05-17 10:00 | disposition home or self-care (01) | DRG 641 ==
LOC: 2ND 05-15 09:47 → ICU 05-15 20:52 → 2ND 05-16 16:14
PROVIDERS: Nurse Practitioner Family; Admitting Provider Internal Medicine Adolescent Medicine; Family Provider Internal Medicine Adolescent Medicine; PCP Internal Medicine Adolescent Medicine; Visit Provider Internal Medicine Adolescent Medicine
DX: E87.2 Acidosis (principal); E86.0 Dehydration; E87.1 Hypo-osmolality and hyponatremia; E66.9 Obesity, unspecified; I10 Essential (primary) hypertension; R00.0 Tachycardia, unspecified; K20.9 Esophagitis, unspecified; R12 Heartburn; R10.10 Upper abdominal pain, unspecified; Z80.9 Family history of malignant neoplasm, unspecified; Z82.49 Family history of ischemic heart disease and other diseases of the circulatory system; Z83.49 Family history of other endocrine, nutritional and metabolic diseases; Z83.3 Family history of diabetes mellitus; Z79.84 Long term (current) use of oral hypoglycemic drugs; Z79.899 Other long term (current) drug therapy; Z68.35 Body mass index [BMI] 35.0-35.9, adult
CPT/HCPCS: 36415; 71046; 71260; 74177; 76705; 80048; 80053; 80329; 81001; 82009; 82550; 82553; 82803; 82962; 83605; 84484; 85025; 85378; 87040; 93005; G0378; J2405; Q9967

== ENCOUNTER → 2017-05-19 08:43 | Outpatient (CLI) | payer BC, SELFPAY ==
[2017-05-19 10:12] LABS: Anion Gap 28.3 mEq/L (5-15); Blood Urea Nitrogen 16 mg/dL (7-18); Chloride 100 mmol/L (98-107); Creatinine,Serum 1.19 mg/dL (0.70-1.30); Estimated Glomerular Filt Rate 66 ml/min (>60); GFR (African American) 80 ML/MIN (>60); Glucose 194 mg/dL (74-106); Potassium 4.3 mmoL/L (3.5-5.1); Sodium 131 mmol/L (136-145)
[2017-05-19 10:27] LABS: Carbon Dioxide 7 mmol/L (21.0-32.0)
== END ==
PROVIDERS: Family Provider Internal Medicine Adolescent Medicine; PCP Internal Medicine Adolescent Medicine; Visit Provider Internal Medicine Adolescent Medicine
DX: E87.2 Acidosis (principal)
CPT/HCPCS: 36415; 80048

== ENCOUNTER → 2017-05-23 08:24 | Outpatient (CLI) | payer BC, SELFPAY ==
[2017-05-23 09:46] LABS: Anion Gap 12.4 mEq/L (5-15); Blood Urea Nitrogen 12 mg/dL (7-18); Carbon Dioxide 29 mmol/L (21.0-32.0); Chloride 99 mmol/L (98-107); Creatinine,Serum 0.72 mg/dL (0.70-1.30); Estimated Glomerular Filt Rate 119 ml/min (>60); GFR (African American) 143 ML/MIN (>60); Glucose 229 mg/dL (74-106); Magnesium 1.9 mg/dL (1.4-2.2); Potassium 3.4 mmoL/L (3.5-5.1); Sodium 137 mmol/L (136-145)
== END ==
PROVIDERS: PCP Internal Medicine Adolescent Medicine; Visit Provider Internal Medicine Adolescent Medicine
DX: E87.2 Acidosis (principal)
CPT/HCPCS: 36415; 80048; 83735

== ENCOUNTER → 2020-04-29 11:21 | Outpatient (CLI) | payer BC, SELFPAY ==
[2020-04-29 12:09] LABS: Basophils # 0.1 K/mm3 (0-0.2); Basophils % 0.9 % (0.1-2.0); Eosinophils # 0.2 K/mm3 (0.0-0.4); Eosinophils % 1.8 % (0.1-12.0); Hematocrit 50.8 % (42.0-52.0); Hemoglobin 16.6 g/dL (14.1-18.0); Lymphocytes # 3.2 K/mm3 (0.7-4.5); Lymphocytes % 39.7 % (10-50); Mean Corpuscular HGB Conc 32.8 g/dL (31.8-35.4); Mean Corpuscular Hemoglobin 28.1 pg (27.0-31.2); Mean Corpuscular Volume 85.9 fl (80-94); Mean Platelet Volume 7.5 fl (7.4-10.4); Monocytes # 0.4 K/mm3 (0.1-1.0); Neutrophils # 4.2 K/mm3 (1.8-7.8); Neutrophils % 52.6 % (37.0-80.0); Platelet Count 263 K/mm3 (142-424); Red Blood Count 5.91 M/mm3 (4.60-6.20); Red Cell Distribution Width 14.2 % (11.5-17.5)
[2020-04-29 12:22] LABS: Hemoglobin A1C 8.9 % (4.0-6.0)
[2020-04-29 12:42] LABS: Alanine Aminotransferase 36 U/L (12-78); Albumin Level 4.3 g/dl (3.5-5.0); Albumin/Globulin Ratio 1.5 (1.1-1.8); Alkaline Phosphatase 95 U/L (38-126); Aspartate Amino Transferase 32 U/L (17-59); Bilirubin,Total 0.6 mg/dl (0.2-1.3); Blood Urea Nitrogen 13 mg/dl (9-20); Calcium 9.9 mg/dl (8.4-10.2); Carbon Dioxide 28 mmol/L (22.0-30.0); Chloride 99 mmol/L (98-107); Chol/HDL Ratio 3.5 (1-3.5); Cholesterol 187 mg/dl (140-200); Estimated Glomerular Filt Rate 121 ml/min (>60); GFR (African American) 146 ML/MIN (>60); Globulin 2.8 g/dL (1.3-3.2); Glucose 161 mg/dl (74-100); HDL Cholesterol 54 mg/dl (40-60); Sodium 136 mmol/L (136-145); Total Protein,Serum 7.1 g/dl (6.3-8.2); Triglycerides 123 mg/dl (30-150); VLDL Cholesterol 25 mg/dL (0-40)
[2020-04-29 12:53] LABS: Direct LDL Cholesterol 128.55 mg/dL (100-129)
== END ==
PROVIDERS: Visit Provider Internal Medicine Adolescent Medicine
DX: E78.5 Hyperlipidemia, unspecified (principal); E11.9 Type 2 diabetes mellitus without complications; G47.33 Obstructive sleep apnea (adult) (pediatric); Z79.4 Long term (current) use of insulin
CPT/HCPCS: 36415; 80053; 80061; 83036; 85025

== ENCOUNTER → 2020-06-23 07:36 | Outpatient (CLI) | payer BC, SELFPAY ==
[2020-06-23 08:07] LABS: Hemoglobin A1C 8.8 % (4.0-6.0)
[2020-06-23 08:31] LABS: Chloride 104 mmol/L (98-107); Potassium 4.7 mmoL/L (3.5-5.1); Sodium 138 mmol/L (136-145)
[2020-06-23 08:34] LABS: Alanine Aminotransferase 25 U/L (12-78); Albumin Level 4.1 g/dl (3.5-5.0); Albumin/Globulin Ratio 1.5 (1.1-1.8); Alkaline Phosphatase 82 U/L (38-126); Anion Gap 8.7 mEq/L (5-15); Aspartate Amino Transferase 23 U/L (17-59); Bilirubin,Total 0.4 mg/dl (0.2-1.3); Blood Urea Nitrogen 14 mg/dl (9-20); Calcium 9.6 mg/dl (8.4-10.2); Carbon Dioxide 30 mmol/L (22.0-30.0); Cholesterol 182 mg/dl (140-200); Estimated Glomerular Filt Rate 121 ml/min (>60); GFR (African American) 146 ML/MIN (>60); Globulin 2.7 g/dL (1.3-3.2); Glucose 142 mg/dl (74-100); Total Protein,Serum 6.8 g/dl (6.3-8.2); Triglycerides 119 mg/dl (30-150); VLDL Cholesterol 24 mg/dL (0-40)
[2020-06-23 08:35] LABS: Chol/HDL Ratio 3.6 (1-3.5); HDL Cholesterol 50 mg/dl (40-60)
[2020-06-23 08:45] LABS: Direct LDL Cholesterol 124.36 mg/dL (100-129)
== END ==
PROVIDERS: Visit Provider Internal Medicine Adolescent Medicine
DX: E11.69 Type 2 diabetes mellitus with other specified complication (principal); Z79.4 Long term (current) use of insulin
CPT/HCPCS: 36415; 80053; 80061; 83036

== ENCOUNTER → 2020-09-29 08:19 | Outpatient (CLI) | payer BC, SELFPAY ==
[2020-09-29 09:10] LABS: Hemoglobin A1C 7.7 % (4.0-6.0)
[2020-09-29 10:23] LABS: Alanine Aminotransferase 27 U/L (12-78); Albumin Level 4.3 g/dl (3.5-5.0); Albumin/Globulin Ratio 1.7 (1.1-1.8); Alkaline Phosphatase 99 U/L (38-126); Anion Gap 11.7 mEq/L (5-15); Aspartate Amino Transferase 36 U/L (17-59); Bilirubin,Total 0.7 mg/dl (0.2-1.3); Blood Urea Nitrogen 14 mg/dl (9-20); Calcium 9.1 mg/dl (8.4-10.2); Carbon Dioxide 27 mmol/L (22.0-30.0); Chloride 104 mmol/L (98-107); Chol/HDL Ratio 3.9 (1-3.5); Cholesterol 175 mg/dl (140-200); Estimated Glomerular Filt Rate 104 ml/min (>60); GFR (African American) 125 ML/MIN (>60); Globulin 2.5 g/dL (1.3-3.2); Glucose 88 mg/dl (74-100); HDL Cholesterol 45 mg/dl (40-60); Potassium 4.7 mmoL/L (3.5-5.1); Sodium 138 mmol/L (136-145); Total Protein,Serum 6.8 g/dl (6.3-8.2); Triglycerides 108 mg/dl (30-150); VLDL Cholesterol 22 mg/dL (0-40)
[2020-09-29 10:34] LABS: Direct LDL Cholesterol 110.22 mg/dL (100-129)
== END ==
PROVIDERS: Visit Provider Internal Medicine Adolescent Medicine
DX: E11.69 Type 2 diabetes mellitus with other specified complication (principal); E78.5 Hyperlipidemia, unspecified; Z79.4 Long term (current) use of insulin
CPT/HCPCS: 36415; 80053; 80061; 83036

== ENCOUNTER → 2021-05-04 09:48 | Outpatient (CLI) | payer BC, SELFPAY ==
[2021-05-04 10:01] LABS: Basophils # 0.2 K/mm3 (0-0.2); Basophils % 2.9 % (0.1-2.0); Eosinophils # 0.2 K/mm3 (0.0-0.4); Eosinophils % 1.9 % (0.1-12.0); Hematocrit 51.4 % (42.0-52.0); Hemoglobin 16.3 g/dL (14.1-18.0); Lymphocytes # 2.8 K/mm3 (0.7-4.5); Lymphocytes % 33.5 % (10-50); Mean Corpuscular HGB Conc 31.8 g/dL (31.8-35.4); Mean Platelet Volume 7.8 fl (7.4-10.4); Monocytes # 0.5 K/mm3 (0.1-1.0); Monocytes % 6.3 % (1.7-9.3); Neutrophils # 4.6 K/mm3 (1.8-7.8); Neutrophils % 55.5 % (37.0-80.0); Platelet Count 290 K/mm3 (142-424); Red Blood Count 5.65 M/mm3 (4.60-6.20); White Blood Count 8.2 K/mm3 (4.8-10.8)
[2021-05-04 10:18] LABS: Hemoglobin A1C 8.3 % (4.0-6.0)
[2021-05-04 11:11] LABS: Chloride 100 mmol/L (98-107); Potassium 4.8 mmoL/L (3.5-5.1); Sodium 138 mmol/L (136-145)
[2021-05-04 11:13] LABS: Blood Urea Nitrogen 11 mg/dl (9-20); Estimated Glomerular Filt Rate 103 ml/min (>60); GFR (African American) 125 ML/MIN (>60)
[2021-05-04 11:14] LABS: Alanine Aminotransferase 29 U/L (12-78); Albumin Level 4.5 g/dl (3.5-5.0); Albumin/Globulin Ratio 1.7 (1.1-1.8); Alkaline Phosphatase 95 U/L (38-126); Anion Gap 13.8 mEq/L (5-15); Aspartate Amino Transferase 34 U/L (17-59); Bilirubin,Total 0.7 mg/dl (0.2-1.3); Calcium 9.6 mg/dl (8.4-10.2); Carbon Dioxide 29 mmol/L (22.0-30.0); Chol/HDL Ratio 3.4 (1-3.5); Cholesterol 167 mg/dl (140-200); Globulin 2.6 g/dL (1.3-3.2); Glucose 105 mg/dl (74-100); HDL Cholesterol 49 mg/dl (40-60); Total Protein,Serum 7.1 g/dl (6.3-8.2); Triglycerides 98 mg/dl (30-150); VLDL Cholesterol 20 mg/dL (0-40)
[2021-05-04 11:25] LABS: Direct LDL Cholesterol 114.15 mg/dL (100-129)
[2021-05-04 11:45] LABS: Thyroid Stimulating Hormone 1.66 uIU/mL (0.465-4.68)
[2021-05-17 20:19] LABS: Testosterone, Total, LC/MS 232.7 ng/dL (264.0-916.0); Testosterone,Free 3.8 pg/mL (6.8-21.5)
== END ==
PROVIDERS: PCP Internal Medicine Adolescent Medicine; Visit Provider Internal Medicine Adolescent Medicine
DX: E11.9 Type 2 diabetes mellitus without complications (principal); E78.5 Hyperlipidemia, unspecified; R68.82 Decreased libido; Z79.4 Long term (current) use of insulin
CPT/HCPCS: 36415; 80053; 80061; 83036; 84402; 84403; 84443; 85025

== ENCOUNTER → 2021-05-16 17:19 | Outpatient (CLI) | payer BC, SELFPAY ==
[2021-05-21 20:09] LABS: Testosterone, Total, LC/MS 457.2 ng/dL (264.0-916.0)
== END ==
PROVIDERS: Visit Provider Internal Medicine Adolescent Medicine
DX: R68.82 Decreased libido (principal)
CPT/HCPCS: 36415; 84402; 84403

== ENCOUNTER → 2021-11-03 10:33 | Outpatient (CLI) | payer BC, SELFPAY ==
[2021-11-03 11:29] LABS: Alanine Aminotransferase 38 U/L (12-78); Albumin Level 3.9 g/dl (3.5-5.0); Albumin/Globulin Ratio 1.5 (1.1-1.8); Alkaline Phosphatase 94 U/L (38-126); Anion Gap 10.6 mEq/L (5-15); Aspartate Amino Transferase 41 U/L (17-59); Blood Urea Nitrogen 12 mg/dl (9-20); Calcium 9.2 mg/dl (8.4-10.2); Carbon Dioxide 28 mmol/L (22.0-30.0); Chloride 104 mmol/L (98-107); Chol/HDL Ratio 2.5 (1-3.5); Cholesterol 106 mg/dl (140-200); Estimated Glomerular Filt Rate 120 ml/min (>60); GFR (African American) 146 ML/MIN (>60); Globulin 2.6 g/dL (1.3-3.2); Glucose 140 mg/dl (74-100); HDL Cholesterol 42 mg/dl (40-60); Potassium 4.6 mmoL/L (3.5-5.1); Sodium 138 mmol/L (136-145); Total Protein,Serum 6.5 g/dl (6.3-8.2); Triglycerides 80 mg/dl (30-150); VLDL Cholesterol 16 mg/dL (0-40)
[2021-11-03 11:30] LABS: Bilirubin,Total < 0.1 mg/dl (0.2-1.3)
[2021-11-03 11:40] LABS: Direct LDL Cholesterol 50.88 mg/dL (100-129)
[2021-11-03 12:35] LABS: Hemoglobin A1C 8.8 % (4.0-6.0)
== END ==
PROVIDERS: PCP Internal Medicine Adolescent Medicine; Visit Provider Internal Medicine Adolescent Medicine
DX: E11.69 Type 2 diabetes mellitus with other specified complication (principal); E78.5 Hyperlipidemia, unspecified; Z79.4 Long term (current) use of insulin
CPT/HCPCS: 36415; 80053; 80061; 83036

== ENCOUNTER → 2021-11-05 13:36 | Outpatient (CLI) | payer BC, SELFPAY ==
--- NOTE | 2021-11-05 13:43 | CA_ITS ---
APPROVED REPORT EXAM: Comprehensive 2D, Doppler, and color-flow Echocardiogram Management Professor: Samantha Kamara RDCS Ht: 5 ft 11 in Wt: 310lbs BSA: 2.54 BP: 110/80 mmHg Indications: FM HX CAD, FM H/O BICUSPID VALVE,SOB,OBESITY 2D Dimensions LVOT 1.62 cm (M/F) 1.5-2.5 M-Mode Dimensions RVDd 2.20 cm (0.9-2.6) LA Diam 3.20 cm (1.9-4.0) LVDd 4.90 cm (3.5-5.7) Ao Diam 3.62 cm (2.0-3.7) LVDs 3.53 cm (3.5-5.7) IVSd 1.25 cm (0.6-1.1) PWd 1.03 cm (0.6-1.1) EF (Teich) 54.00% FS 28.00% EDV (Teich) 112.80 mL ESV (Teich) 51.90 mL LV Diastology E Decel Time 203.00 (160-240 msec) E/A Ratio 1.1 MED E' 11.10 (< 7 cm/sec) E'/MED E' Ratio 6.27 (>14) LAT E' 12.40 (<10 cm/sec) E/LAT E' Ratio 5.61 (>14) Mitral Valve MV E Max Josemanuel. 70.00 (40-130 cm/s) MV A Velocity 64.00 (40-130 cm/s) E/A Ratio 1.09 MV Decel. Time 203.00 (160-240 ms) MV PHT 60.00 ms Left Ventricle Technically difficult study because of the patient factors and poor acoustic windows. Left atrium is normal size left ventricle is normal size estimated ejection fraction 55% with no regional wall motion abnormality, diastolic parameters are inconclusive. Right Ventricle Right atrium and right ventricle are normal size and contractility. Aortic Valve Aortic valve is not well visualized, there is no aortic stenosis or aortic insufficiency. Mitral Valve Mitral valve grossly normal, there is trace mitral regurgitation. Tricuspid Valve Tricuspid valve grossly normal, there is trace tricuspid regurgitation, tricuspid regurgitation jet velocity is inadequate for calculation of the right ventricular systolic pressure. Pulmonic Valve Pulmonic valve is poorly visualized. Great Vessels Aortic root is normal size. Inferior vena cava is poorly visualized. Pericardium No significant pericardial effusion noted. Conclusion 1. Technically very difficult study because of the patient factors and poor acoustic windows. 2. Normal left ventricular size with preserved left ventricular systolic function, estimated ejection fraction 55% with no regional wall motion abnormality, diastolic parameters are inconclusive. 3. Aortic valve is not well visualized, possibility of bicuspid aortic valve cannot be excluded, there is no aortic stenosis or aortic insufficiency. 4. Trace mitral and tricuspid regurgitation. 5. No significant pericardial effusion noted. 6. Inferior vena cava is poorly visualized. Electronically signed by : Omer Chaudhry MD 11/05/2021 20:39:06
== END ==
PROVIDERS: PCP Internal Medicine Adolescent Medicine; Visit Provider Internal Medicine Adolescent Medicine
DX: R06.02 Shortness of breath (principal); E66.9 Obesity, unspecified; Z82.79 Family history of other congenital malformations, deformations and chromosomal abnormalities
CPT/HCPCS: 93306

== ENCOUNTER → 2022-02-04 08:09 | Outpatient (CLI) | payer BC, SELFPAY ==
[2022-02-04 10:51] LABS: Basophils # 0.1 K/mm3 (0-0.2); Basophils % 1.2 % (0.1-2.0); Eosinophils # 0.2 K/mm3 (0.0-0.4); Eosinophils % 1.8 % (0.1-12.0); Hematocrit 46.9 % (42.0-52.0); Lymphocytes % 35.2 % (10-50); Mean Corpuscular HGB Conc 32.1 g/dL (31.8-35.4); Mean Corpuscular Hemoglobin 28.4 pg (27.0-31.2); Mean Corpuscular Volume 88.5 fl (80-94); Mean Platelet Volume 7.9 fl (7.4-10.4); Monocytes # 0.6 K/mm3 (0.1-1.0); Monocytes % 6.7 % (1.7-9.3); Neutrophils # 4.7 K/mm3 (1.8-7.8); Platelet Count 265 K/mm3 (142-424); White Blood Count 8.5 K/mm3 (4.8-10.8)
[2022-02-04 11:41] LABS: Alanine Aminotransferase 26 U/L (12-78); Albumin Level 3.8 g/dl (3.5-5.0); Albumin/Globulin Ratio 1.6 (1.1-1.8); Alkaline Phosphatase 107 U/L (38-126); Anion Gap 10.4 mEq/L (5-15); Aspartate Amino Transferase 33 U/L (17-59); Bilirubin,Total 0.4 mg/dl (0.2-1.3); Blood Urea Nitrogen 10 mg/dl (9-20); Calcium 8.7 mg/dl (8.4-10.2); Carbon Dioxide 27 mmol/L (22.0-30.0); Chloride 105 mmol/L (98-107); Chol/HDL Ratio 2.3 (1-3.5); Cholesterol 88 mg/dl (140-200); Estimated Glomerular Filt Rate 120 ml/min (>60); GFR (African American) 145 ML/MIN (>60); Globulin 2.4 g/dL (1.3-3.2); Glucose 106 mg/dl (74-100); HDL Cholesterol 38 mg/dl (40-60); Potassium 4.4 mmoL/L (3.5-5.1); Sodium 138 mmol/L (136-145); Total Protein,Serum 6.2 g/dl (6.3-8.2); Triglycerides 68 mg/dl (30-150); VLDL Cholesterol 14 mg/dL (0-40)
[2022-02-04 11:52] LABS: Direct LDL Cholesterol 43.24 mg/dL (100-129)
[2022-02-04 13:55] LABS: Hemoglobin A1C 8.2 % (4.0-6.0)
== END ==
PROVIDERS: PCP Internal Medicine Adolescent Medicine; Visit Provider Internal Medicine Adolescent Medicine
DX: E11.69 Type 2 diabetes mellitus with other specified complication (principal); E78.5 Hyperlipidemia, unspecified; D12.6 Benign neoplasm of colon, unspecified
CPT/HCPCS: 36415; 80053; 80061; 83036; 85025